=== PATIENT | female | born 1950 | race African-American/Black ===

== ENCOUNTER 2024-12-07 21:11 | Inpatient (IN) | payer MEDICARE, OTHER ==
[~2024-12-07] VITALS: Ht 170.2 cm; Wt 117.9 kg
[2024-12-07] MEDS ORDERED: IV NS 1000 ML 1,000 ML IV ONE (21:15)
[2024-12-07 21:31] LABS: BASOPHILS # (AUTO) 0.1 K/UL (0.0-0.2); BASOPHILS % (AUTO) 1.2 % (0.0-2.0); EOSINOPHILS # (AUTO) 0.1 K/uL (0.0-0.7); EOSINOPHILS % (AUTO) 1.1 % (0.0-7.0); HEMATOCRIT 38.5 % (31.2-41.9); HEMOGLOBIN 12.8 g/dL (10.9-14.3); LYMPHOCYTES # (AUTO) 3.4 K/uL (0.8-4.8); LYMPHOCYTES % (AUTO) 45.1 % (20.5-51.5); MEAN CORPUSCULAR HEMOGLOBIN 30.5 uug (24.7-32.8); MEAN CORPUSCULAR HGB CONC 33 g/dL (32.3-35.6); MEAN CORPUSCULAR VOLUME 91.9 fL (75.5-95.3); MONOCYTES # (AUTO) 1.1 K/uL (0.1-1.30); MONOCYTES % (AUTO) 14.8 % (0.0-11.0); NEUTROPHILS # (AUTO) 2.9 K/uL (1.8-8.9); NEUTROPHILS % (AUTO) 37.8 % (38.5-71.5); PLATELET COUNT (AUTO) 265 K/uL (179-408); RED BLOOD CELL COUNT(AUTO) 4.19 MIL/uL (3.63-4.92); RED CELL DISTRIBUTION WIDTH 13.2 % (12.3-17.7); WHITE BLOOD COUNT (AUTO) 7.6 K/uL (3.8-11.8)
[2024-12-07 21:33] LABS: DIFFERENTIAL COMMENT 1
[2024-12-07 21:42] LABS: CALCIUM 9.6 mg/dL (8.5-10.1); CARBON DIOXIDE 28 mmol/L (21-32); CHLORIDE 103 mmol/L (98-107); GLUCOSE 126 mg/dL (74-106); POTASSIUM 3.6 mmol/L (3.5-5.1); SODIUM SERUM 140 mmol/L (136-145); UREA NITROGEN, BLOOD 6 mg/dL (7-18)
[2024-12-07 21:48] LABS: ALANINE AMINOTRANSFERASE 39 U/L (14-59); ALBUMIN 3.4 g/dL (3.4-5.0); ALKALINE PHOSPHATASE 69 U/L (50-136); ASPARTATE AMINOTRANSFERASE 22 U/L (15-37); BILIRUBIN,DIRECT 0.2 mg/dL (0.0-0.2); BILIRUBIN,TOTAL 0.4 mg/dL (0.2-1.0); TOTAL PROTEIN, SERUM 7.7 g/dL (6.4-8.2)
[2024-12-07 21:57] LABS: ETHANOL < 3 MG/DL (0-10)
[2024-12-07 22:06] LABS: *AMPHETAMINE, URINE NEGATIVE (NEGATIVE); *BARBITURATE, URINE NEGATIVE (NEGATIVE); *BENZODIAZEPINE, URINE NEGATIVE (NEGATIVE); *CANNABINOID, URINE NEGATIVE (NEGATIVE); *COCCAINE, URINE NEGATIVE (NEGATIVE); *OPIATE, URINE NEGATIVE (NEGATIVE); *PHENCYCLIDINE SCREEN,URINE NEGATIVE (NEGATIVE); FENTANYL, URINE NEGATIVE (NEGATIVE)
[2024-12-07 22:12] LABS: *BILIRUBIN,URIN NEGATIVE (NEGATIVE); *BLOOD, URINE NEGATIVE (NEGATIVE); *CLARITY,URINE CLEAR (CLEAR); *COLOR,URINE YELLOW (YELLOW); *KETONES,URINE NEGATIVE (NEGATIVE); *PROTEIN,URINE NEGATIVE (NEGATIVE); LEUKOCYTE ESTERASE ,URINE NEGATIVE (NEGATIVE); NITRITE, URINE NEGATIVE (NEGATIVE); PH,URINE 5.5 (5.0-8.0); UGLUCOSE NEGATIVE (NEGATIVE)
[2024-12-07 22:15] LABS: RBC,URINE 0-3 /HPF (0-3)
[2024-12-07 22:16] LABS: BACTERIA,URINE MODERATE /HPF (NONE SEEN); SQUAMOUS EPITHELIAL CELL,UR MODERATE /HPF (NONE SEEN); WBC,URINE NONE SEEN /HPF (0-3)
[2024-12-07 22:17] LABS: THYROID STIMULATING HORMONE 3.721 mIU/mL (0.358-3.740)
[2024-12-08] MEDS ORDERED: DIVA125T2 PO (00:39)
[2024-12-08] MEDS ORDERED: ASCO500C18 PO (00:39)
[2024-12-08] MEDS ORDERED: LEVO25TA2 PO (00:39)
[2024-12-08] MEDS ORDERED: LISI-656 PO (00:39)
[2024-12-08] MEDS ORDERED: ATOR20TA PO (00:39)
[2024-12-08] MEDS ORDERED: OMEP20TA20 PO (00:39)
[2024-12-08] MEDS ORDERED: ACET325C7 PO (00:39)
[2024-12-08] MEDS ORDERED: FOLI1TAB94 PO (00:39)
[2024-12-08] MEDS ORDERED: FURO20TA4 PO (00:39)
[2024-12-08] MEDS ORDERED: POTA10CA43 PO (00:39)
[2024-12-08] MEDS ORDERED: CHOL10005 PO (00:39)
[2024-12-08] MEDS ORDERED: MULT-213 PO (00:39)
[2024-12-08] MEDS ORDERED: RISP2TAB5 PO (00:39)
[2024-12-08] MEDS ORDERED: TEMA15CA5 PO (00:39)
[2024-12-08] MEDS ORDERED: RISP1TAB7 PO (00:39)
[2024-12-08] MEDS ORDERED: LORAZEPAM 1 MG TABLET PO PRN (02:15)
[2024-12-08] MEDS ORDERED: TEMAZEPAM 7.5 MG CAPSULE PO PRN ×2 (02:15→09:30)
[2024-12-08] MEDS ORDERED: MAGNESIUM HYDROXIDE 30 ML LIQUID UDC PO PRN (02:15)
[2024-12-08] MEDS ORDERED: ACETAMINOPHEN 325 MG TABLET PO PRN (02:15)
[2024-12-08] MEDS ORDERED: MAG HYDROX/AL HYDROX/SIMETH 30 ML LIQUID UDC PO PRN (02:15)
[2024-12-08 03:30] VITALS: BP 151/72; TEMP 97.7; O2SAT 95
[2024-12-08 08:38] VITALS: BP 142/72; TEMP 98.2; O2SAT 98
[2024-12-08] MEDS: FOLIC ACID 1 MG TABLET PO SCH (08:47)
[2024-12-08] MEDS: FUROSEMIDE 20 MG TABLET PO SCH (08:47)
[2024-12-08] MEDS: POTASSIUM CHLORIDE 10 MEQ TAB.PRT.SR PO SCH (08:47)
[2024-12-08] MEDS: LISINOPRIL 5 MG TABLET PO SCH (08:47)
[2024-12-08] MEDS: LEVOTHYROXINE SODIUM 25 MCG TABLET PO SCH (08:48)
[2024-12-08] MEDS: ASCORBIC ACID 500 MG TABLET PO SCH (08:48)
[2024-12-08] MEDS: MULTIVIT, IRON, MIN NO. 8, FA TABLET PO SCH (08:48)
[2024-12-08] MEDS ORDERED: Medication Not On Formulary EA (Multivitamins W-Minerals (Multivitamin With Minerals) 1 PO SCH (09:00)
[2024-12-08] MEDS ORDERED: OMEPRAZOLE MAGNESIUM 40 MG PO SCH (09:00)
[2024-12-08] MEDS ORDERED: Cholecalciferol (Vitamin D3) (Vitamin D3) 1 CAP) PO SCH (09:00)
[2024-12-08] MEDS: risperiDONE-M 0.5 MG TAB.RAPDIS PO SCH (09:30)
[2024-12-08] MEDS: PANTOPRAZOLE SODIUM 40 MG TABLET.DR PO SCH (11:30)
[2024-12-08 15:12] VITALS: BP 114/57; TEMP 98; O2SAT 98
[2024-12-08] MEDS: DIVALPROEX SPRINKLE 125 MG CAP.SPRINK PO SCH (17:14)
[2024-12-08 19:39] VITALS: BP 116/57; TEMP 98; O2SAT 98
[2024-12-08] MEDS: ATORVASTATIN 20 MG TABLET PO SCH (21:00)
[2024-12-09] MEDS: LEVOTHYROXINE SODIUM 25 MCG TABLET PO SCH (06:19)
[2024-12-09] MEDS: CHOLECALCIFEROL 1,000 UNIT TABLET PO SCH (09:00)
[2024-12-10 08:17] VITALS: BP 110/65; TEMP 98; O2SAT 98
[2024-12-11 20:08] VITALS: BP 123/79; O2SAT 97
[2024-12-12 08:17] VITALS: BP 100/52; TEMP 98.2; O2SAT 98
[2024-12-12 15:19] VITALS: BP 134/75; TEMP 98; O2SAT 98
[2024-12-12 20:00] VITALS: BP 135/69; O2SAT 96
[2024-12-13 07:48] VITALS: BP 117/59; TEMP 98; O2SAT 96
[2024-12-13 15:50] VITALS: BP 134/72; TEMP 98; O2SAT 98
[2024-12-14 07:59] VITALS: BP 112/62; TEMP 98; O2SAT 98
[2024-12-14 16:02] VITALS: BP 112/72; TEMP 98; O2SAT 98
[2024-12-14 19:55] VITALS: BP 135/73; TEMP 97.9; O2SAT 98
[2024-12-15 07:55] VITALS: BP 106/63; TEMP 98.2; O2SAT 96
[2024-12-15 15:41] VITALS: BP 134/87; TEMP 98; O2SAT 98
[2024-12-15] MEDS: OLANZAPINE 10 MG VIAL IM ONE (16:58)
[2024-12-16 08:22] VITALS: BP 112/66; TEMP 98; O2SAT 97
[2024-12-16] MEDS: GLUCERNA SHAKE 237 ML CAN PO SCH (09:00)
[2024-12-16 16:17] VITALS: BP 136/64; TEMP 98.5
[2024-12-16 21:28] VITALS: BP 112/59; O2SAT 97
[2024-12-17 08:17] VITALS: BP 113/62; TEMP 98.5; O2SAT 100
[2024-12-17] MEDS ORDERED: risperiDONE 1 MG/ML UDC PO SCH (17:00)
[2024-12-17] MEDS: risperiDONE 2 MG TABLET PO SCH (17:00)
[2024-12-17] MEDS: OLANZAPINE 10 MG VIAL IM PRN (17:39)
[2024-12-17 19:48] VITALS: BP 116/65; TEMP 98.2; O2SAT 98
[2024-12-18 16:20] VITALS: BP 114/57; TEMP 98.1; O2SAT 96
[2024-12-18 19:41] VITALS: BP 109/61; O2SAT 100
[2024-12-19 08:00] VITALS: BP 134/62; TEMP 98; O2SAT 98
[2024-12-19 16:20] VITALS: BP 155/82; TEMP 98; O2SAT 96
[2024-12-19] MEDS: GLUCERNA SHAKE 237 ML CAN PO SCH (17:00)
[2024-12-19 20:00] VITALS: BP 111/66; O2SAT 94
[2024-12-20 08:05] VITALS: BP 127/72; TEMP 98; O2SAT 98
[2024-12-20] MEDS: LORAZEPAM 1 MG TABLET PO PRN (13:29)
[2024-12-20 15:27] VITALS: BP 108/61; TEMP 98; O2SAT 96
[2024-12-20 20:00] VITALS: BP 108/65; TEMP 98; O2SAT 93
[2024-12-21 09:14] VITALS: BP 128/66; TEMP 97.9; O2SAT 98
[2024-12-21 17:02] VITALS: BP 131/47; TEMP 98.4; O2SAT 97
[2024-12-21 19:55] VITALS: BP 109/53; TEMP 98; O2SAT 95
[2024-12-22 10:58] VITALS: BP 137/61; TEMP 98.2; O2SAT 98
[2024-12-22 15:29] VITALS: BP 121/62; TEMP 98; O2SAT 96
[2024-12-22 19:42] VITALS: BP 110/57; TEMP 98.2; O2SAT 97
[2024-12-23 08:22] VITALS: BP 112/55; TEMP 98; O2SAT 98
[2024-12-23 15:01] VITALS: BP 116/62; TEMP 98; O2SAT 98
[2024-12-23 20:12] VITALS: BP 123/66; TEMP 97.8; O2SAT 98
[2024-12-24 08:30] VITALS: BP 156/75
== END 2024-12-24 16:15 | DRG 885 ==
LOC: ER 22:04 → GPS 12-08 01:00
PROVIDERS: ADMIT Psychiatry & Neurology Psychiatry; ATTEND Nurse Practitioner Acute Care
DX: F25.0 Schizoaffective disorder, bipolar type (principal); N18.9 Chronic kidney disease, unspecified; Z68.41 Body mass index [BMI] 40.0-44.9, adult; I13.0 Hypertensive heart and chronic kidney disease with heart failure and stage 1 through stage 4 chronic kidney disease, or unspecified chronic kidney disease; E66.01 Morbid (severe) obesity due to excess calories; K21.9 Gastro-esophageal reflux disease without esophagitis; J44.9 Chronic obstructive pulmonary disease, unspecified; E03.9 Hypothyroidism, unspecified; Z79.890 Hormone replacement therapy; E78.5 Hyperlipidemia, unspecified; E11.22 Type 2 diabetes mellitus with diabetic chronic kidney disease; I50.9 Heart failure, unspecified; Z79.899 Other long term (current) drug therapy; Z86.2 Personal history of diseases of the blood and blood-forming organs and certain disorders involving the immune mechanism; Z91.199 Patient's noncompliance with other medical treatment and regimen due to unspecified reason; F94.0 Selective mutism
CPT/HCPCS: 36415; 71045; 84443; 84484; 85025; 87086; G0480; J2358